=== PATIENT | male | born 1950 | race Caucasian/White ===

== ENCOUNTER 2017-06-08 10:57 | Emergency (ER) | payer OTHER, MEDICARE ==
[2017-06-08] MEDS ORDERED: NS 1,000 ML IV ONE (12:45)
--- NOTE | 2017-06-08 12:49 | EDPHY ---
H & P Stated Complaint: Had a sharp pain on L side of head yesterday Source: Patient Exam Limitations: No limitations - Personal History Current Tetanus Diphtheria and Acellular Pertussis (TDAP): Yes - Medical/Surgical History Other PMH: CVA 5 years ago. pre-diabetic - Social History Smoking Status: Former smoker Time Seen by Provider: 06/08/17 12:46 HPI/ROS: HPI: This is a 66-year-old male who presents with Chief Complaint: sharp pain on L side of head yesterday Location: left side head Quality: Sharp pain Duration: Yesterday x 2 Signs and Symptoms: No fever, no chills, Timing: Sudden, resolved Severity: Moderate to severe Context: Patient has a history of left CVA with chronic right hemiparesis in 2011, taking full-strength aspirin presents with complaints of left temporal and parietal sharp, pain yesterday afternoon. He was working in the garden admits to not drinking fluids came inside to make lunch and while standing at the counter developed sharp nonradiating headache that lasted a few seconds. He noted some noise sensitivity and nausea. It then self resolved but reoccurred approximately 1 hour later lasting a few seconds and again self- resolved. Denies weakness, fever, radiation, vision changes, dizziness, photophobia, neck stiffness, nasal congestion. reports that he has not been drinking enough fluids, has been around the grandchildren attending football games all weekend. No prior history of migraine headache. He is at his baseline today and eating and drinking normally. Modifying Factors: None Comment: ROS: see HPI Constitutional: No fever, no chills, no weight loss Eyes: No blurred vision Respiratory: No shortness of breath, no cough Cardiovascular: No chest pain Gastrointestinal: No nausea, no vomiting, no diarrhea Genitourinary: No dysuria Extremities: No myalgias Neurologic: No weakness, no numbness Skin: No rashes Hematologic: No bruising, no bleeding MEDICAL/SURGICAL/SOCIAL HISTORY: Medical history: CVA 5 years ago, pre-diabetic Surgical history: Denies Social history: . CONSTITUTIONAL: Pleasant well-appearing adult white male, at bedside, awake and alert, no obvious distress HEENT: Atraumatic and normocephalic, PERRL, EOMI. Tympanic membranes clear. Oropharynx clear, no exudate and moist pink mucosa. Airway patent. No lymphadenopathy. No meningismus. Cardiovascular: Normal S1/S2, regular rate, regular rhythm, without murmur rub or gallop. PULMONARY/CHEST: Symmetrical and nontender. Clear to auscultation bilaterally. Good air movement. No accessory muscle usage. ABDOMEN: Soft, nondistended, nontender, no rebound, no guarding, no peritoneal signs, no masses or organomegaly. No CVAT. EXTREMITIES: 2/2 pulses, strength 5/5, no deformities, no clubbing, no cyanosis or edema. NEUROLOGICAL: no focal neuro deficits. GCS 15. No temporal reproduction of pain. Normal cerebellar exam. Normal finger-nose test. Normal ghda-[id number]. Speech clear. Right upper extremity chronic hemiparesis noted. SKIN: Warm and dry, no erythema. no rash. Good capillary refill. (Tracie Augustin) Constitutional: Initial Vital Signs Temperature (C) 36.8 C 06/08/17 11:00 Heart Rate 65 06/08/17 11:00 Respiratory Rate 16 06/08/17 11:00 Blood Pressure 138/73 H 06/08/17 11:00 O2 Sat (%) 95 06/08/17 11:00 O2 Delivery Mode Room Air Allergies/Adverse Reactions: No Known Allergies Allergy (Unverified 06/08/17 12:15) Home Medications: Medication Instructions Recorded Lisinopril 06/08/17 Simvastatin [Zocor] 20 mg PO 06/08/17 metFORMIN HCL [Glucophage 500 mg 500 mg PO 06/08/17 (*)] Medical Decision Making ED Course/Re-evaluation: MRI Brain, labs, IVF ordered no LOC/neurologic deficits that are acute etiology migraine vs. dehydration vs. vasospastic headache Headache resolved since yesterday; asymptomatic currently. Given 1 L normal saline 1328: Labs reviewed and grossly unremarkable 1448: Called by radiologist an MRI brain shows no acute infarct; AVM Suspect dehydration and headache etiology (Tracie Augustin) The patient was evaluated and managed by the physician ophthalmic surgical assistant. I have reviewed this chart and I agree with the findings and plan of care as documented , as indicated by my signature. I am the secondary supervising physician. ( Evelyn Cleveland) Differential Diagnosis: Headache including but not limited to subarachnoid hemorrhage, migraine headache , tension headache and infectious causes such as meningitis, pharyngitis and sinusitis. (Tracie Augustin) - Data Points Laboratory Results: Laboratory Results 06/08/17 13:06 06/08/17 13:06 Medications Given: Discontinued Medications Sodium Chloride (Ns) 1,000 mls @ 0 mls/hr IV ONCE ONE; Wide Open PRN Reason: Protocol Stop: 06/08/17 12:46 Last Admin: 06/08/17 13:00 Dose: 1,000 mls Departure - Departure Disposition: Home, Routine, Self-Care Clinical Impression: Cephalgia Condition: Good Instructions: General Headache (ED) Additional Instructions: Please make sure to rest as needed and drink plenty of fluids to prevent dehydration. MRI of your brain today does not show any acute intracranial process. Please follow-up with Neurology if symptoms persist. Referrals: KEVIN BROUSSARD [Primary Care Provider] - 2-3 days, call for appt. Manish Castellano MD [Medical Doctor] - As per Instructions
[2017-06-08 13:15] LABS: % IMMATURE GRANULYOCYTES 0.2 % (0.0-1.1); ABSOLUTE IMMATURE GRANULOCYTES 0.02 10^3/uL (0.00-0.10); ADD DIFF? NO; ADD MORPH? NO; ADD SCAN? NO; ATYPICAL LYMPHOCYTE FLAG 0 (0-99); FRAGMENT RBC FLAG 0 (0-99); HEMOGLOBIN 16.7 g/dL (13.7-17.5); LEFT SHIFT FLG 0 (0-99); LIPEMIA HEMOLYSIS FLAG 90 (0-99); MEAN CELL HEMOGLOBIN 31.9 pg (27.9-34.1); MEAN CELL HEMOGLOBIN CONCENTR. 35.5 g/dL (32.4-36.7); MEAN CELL VOLUME 89.7 fL (81.5-99.8); MEAN PLATELET VOLUME 8.5 fL (8.7-11.7); PLATELET CLUMPS FLAG 10 (0-99); PLATELET COUNT 163 10^3/uL (150-400); RED BLOOD CELL COUNT 5.24 10^6/uL (4.40-6.38); RED CELL DISTRIBUTION WIDTH 12.4 % (11.5-15.2)
[2017-06-08 13:22] LABS: ANION GAP 12 mEq/L (8-16); CALCIUM 9.1 mg/dL (8.5-10.4); CARBON DIOXIDE 24 mEq/l (22-31); CHLORIDE 103 mEq/L (97-110); CREATININE 0.9 mg/dL (0.7-1.3); GLOMERULAR FILTRATION RATE > 60; GLUCOSE 151 mg/dL (70-100); POTASSIUM 4.1 mEq/L (3.5-5.2); SODIUM 139 mEq/L (134-144)
[2017-06-08 13:34] LABS: HEMATOCRIT 47.3 % (40.0-51.0)
[2017-06-08] MEDS ORDERED: GADOBUTROL 10 ML VIAL IVP ONE (14:01)
[2017-06-08 14:28] VITALS: RESP 18
[2017-06-08 15:09] VITALS: BP 131/73; PULSE 64; TEMP 98.4; O2SAT 93
== END 2017-06-08 15:10 | disposition home or self-care (01) ==
DX: R51 Headache (principal); E86.9 Volume depletion, unspecified; Z86.73 Personal history of transient ischemic attack (TIA), and cerebral infarction without residual deficits; Z87.891 Personal history of nicotine dependence
CPT/HCPCS: 70553; 96360; 99285; A9585